=== PATIENT | male | born 1960 | race Caucasian/White ===

== ENCOUNTER 2016-12-02 18:57 | Emergency (ER) | payer OTHER ==
[2016-12-02] MEDS ORDERED: ONDANSETRON 4 MG TAB.RAPDIS PO ONE (19:58)
--- NOTE | 2016-12-02 19:58 | ER Document Report ---
ED General - General Chief Complaint: Psych Problem Stated Complaint: DEPRESSION SUICIDAL IDEATION Time Seen by Provider: 12/02/16 19:38 Mode of Arrival: Ambulatory Information source: Patient, Relative Notes: 56-year-old male history of depression presents with complaints of not being able to sleep feeling depressed being nauseous and vomiting. pt was on lexapro which was taken off in august. pt started on seroquel but did not take it today. TRAVEL OUTSIDE OF THE [place] IN LAST 30 DAYS: No - HPI Onset: Just prior to arrival Onset/Duration: Sudden Quality of pain: No pain Severity: Mild Pain Level: Denies Associated symptoms: Nausea, Vomiting Exacerbated by: Denies Relieved by: Denies Similar symptoms previously: Yes Recently seen / treated by doctor: Yes - Related Data Allergies/Adverse Reactions: No Known Drug Allergies Allergy (Verified 09/30/11 16:08) Past Medical History - Social History Smoking Status: Never Smoker Cigarette use (# per day): No Chew tobacco use (# tins/day): No Smoking Education Provided: No Family History: Reviewed & Not Pertinent Patient has suicidal ideation: Yes Patient has homicidal ideation: No - Past Medical History Cardiac Medical History: Denies: Hx Coronary Artery Disease, Hx Heart Attack, Hx Hypertension Pulmonary Medical History: Reports: Hx Pneumonia Denies: Hx Asthma, Hx Bronchitis, Hx COPD Neurological Medical History: Denies: Hx Cerebrovascular Accident, Hx Seizures Renal/ Medical History: Denies: Hx Peritoneal Dialysis Musculoskeltal Medical History: Reports Hx Arthritis Past Surgical History: Denies: Hx Pacemaker - Immunizations Hx Diphtheria, Pertussis, Tetanus Vaccination: Yes Review of Systems - Review of Systems Notes: REVIEW OF SYSTEMS: CONSTITUTIONAL : Denies fever, chills, or sweats. Denies recent illness. EENT: Denies eye, ear, throat, or mouth pain or symptoms. Denies nasal or sinus congestion or discharge. Denies throat, tongue, or mouth swelling or difficulty swallowing. CARDIOVASCULAR: Denies chest pain. Denies palpitations or racing or irregular heart beat. Denies ankle edema. RESPIRATORY: Denies cough, cold, or chest congestion. Denies shortness of breath, difficulty breathing, or wheezing. GASTROINTESTINAL: Admits to nausea vomiting GENITOURINARY: Denies difficulty urinating, painful urination, burning, frequency, blood in urine, or discharge. MUSCULOSKELETAL: Denies back or neck pain or stiffness. Denies joint pain or swelling. SKIN: Denies rash, lesions or sores. HEMATOLOGIC : Denies easy bruising or bleeding. LYMPHATIC: Denies swollen, enlarged glands. NEUROLOGICAL: Denies confusion or altered mental status. Denies passing out or loss of consciousness. Denies dizziness or lightheadedness. Denies headache. Denies weakness or paralysis or loss of use of either side. Denies problems with gait or speech. Denies sensory loss, numbness, or tingling. Denies seizures. PSYCHIATRIC: Admits to anxiety depression. ALL OTHER SYSTEMS REVIEWED AND NEGATIVE. Dictation was performed using [employer] voice recognition software PHYSICAL EXAMINATION: GENERAL: Well-appearing, well-nourished and in no acute distress. HEAD: Atraumatic, normocephalic. EYES: Pupils equal round and reactive to light, extraocular movements intact, sclera anicteric, conjunctiva are normal. ENT: Nares patent, oropharynx clear without exudates. Moist mucous membranes. NECK: Normal range of motion, supple without lymphadenopathy LUNGS: Breath sounds clear to auscultation bilaterally and equal. No wheezes rales or rhonchi. HEART: Regular rate and rhythm without murmurs ABDOMEN: Soft, nontender, nondistended abdomen. No guarding, no rebound. No masses appreciated. Musculoskeletal: Normal range of motion, no pitting or edema. No cyanosis. NEUROLOGICAL: Cranial nerves grossly intact. Normal speech, normal gait. Normal sensory, motor exams PSYCH: Flat affect SKIN: Warm, Dry, normal turgor, no rashes or lesions noted. Physical Exam - Vital signs Vitals: Temp Pulse Resp BP Pulse Ox 99.2 F 75 18 160/88 H 99 12/02/16 19:03 12/02/16 19:03 12/02/16 19:03 12/02/16 19:03 12/02/16 19:03 Course - Re-evaluation Re-evalutation: 12/02/16 21:19 Medically patient looks well however will require mental health evaluation. He will be given Haldol for his nausea vomiting and symptoms - Vital Signs Vital signs: Temp Pulse Resp BP Pulse Ox 99.2 F 75 18 160/88 H 99 12/02/16 19:03 12/02/16 19:03 12/02/16 19:03 12/02/16 19:03 12/02/16 19:03 - Laboratory Result Diagrams: 12/02/16 20:40 12/02/16 20:40 Discharge - Discharge Clinical Impression: Depression with anxiety Condition: Stable Disposition: PSYCH HOSP/UNIT
[2016-12-02] MEDS ORDERED: QUETIAPINE FUMARATE 100 MG TABLET PO ONE (20:24)
[2016-12-02] MEDS ORDERED: HALOPERIDOL LACTATE INJ 5 MG/1 ML VIAL IM ONE (20:55)
[2016-12-02 20:56] LABS: ABSOLUTE BASOPHILS # (AUTO) 0.1 10^3/uL (0.0-0.2); ABSOLUTE EOSINOPHILS # (AUTO) 0.1 10^3/uL (0.0-0.6); ABSOLUTE LYMPHOCYTES (AUTO) 2.6 10^3/uL (0.5-4.7); ABSOLUTE MONOCYTES (AUTO) 0.9 10^3/uL (0.1-1.4); ABSOLUTE NEUT (AUTO) 8.7 10^3/uL (1.7-8.2); BASOPHILS % (AUTO) 0.6 % (0-2); EOSINOPHILS % (AUTO) 0.8 % (0-6); HEMATOCRIT 44.3 % (37.9-51.0); HEMOGLOBIN 15.3 g/dL (13.5-17.0); HGB HCT DIFFERENCE 1.6; MEAN CORPUSCULAR HGB CONC 34.6 g/dL (32.0-36.0); MEAN CORPUSCULAR VOLUME 87 fl (80-97); MONOCYTES % (AUTO) 7.4 % (3-13); RED BLOOD COUNT 5.11 10^6/uL (4.35-5.55); RED CELL DISTRIBUTION WIDTH 13.3 % (11.5-14.0); SEGMENTED NEUTROPHILS % (AUTO) 70.2 % (42-78); WHITE BLOOD COUNT 12.4 10^3/uL (4.0-10.5)
[2016-12-02 21:06] LABS: ALANINE AMINOTRANSFERASE 32 U/L (21-72); ALBUMIN 4.8 g/dL (3.5-5.0); ALKALINE PHOSPHATASE 63 U/L (38-126); ANION GAP 14 (5-19); ASPARTATE AMINO TRANSFERASE 21 U/L (17-59); BILIRUBIN,DIRECT 0.4 mg/dL (0.0-0.4); BILIRUBIN,TOTAL 0.7 mg/dL (0.2-1.3); BLOOD UREA NITROGEN 10 mg/dL (7-20); CALCIUM 10.3 mg/dL (8.4-10.2); CARBON DIOXIDE 27 mmol/L (22-30); CHLORIDE 101 mmol/L (98-107); CREATININE RESULT 1.18 mg/dL (0.52-1.25); GLUCOSE 102 mg/dL (75-110); POTASSIUM 3.7 mmol/L (3.6-5.0); SODIUM 142.4 mmol/L (137-145); TOTAL PROTEIN 7.4 g/dL (6.3-8.2)
[2016-12-02 21:07] LABS: ALCOHOL < 10 mg/dL (NONE DETECTED)
[2016-12-02 21:59] LABS: APPEARANCE,URINE SLIGHTLY-CLOUDY; BILIRUBIN,URINE NEGATIVE (NEGATIVE); GLUCOSE, URINE NEGATIVE (NEGATIVE); KETONES,URINE NEGATIVE (NEGATIVE); LEUKOCYTE ESTERASE,URINE NEGATIVE (NEGATIVE); NITRITE,URINE NEGATIVE (NEGATIVE); PROTEIN,URINE NEGATIVE (NEGATIVE); URINE SPECIFIC GRAVITY 1.006; UROBILINOGEN,URINE NEGATIVE mg/dL (<2.0)
[2016-12-02 22:11] LABS: URINE BARBITURATES SCREEN NEGATIVE; URINE METHADONE SCREEN NEGATIVE; URINE OPIATES LOW NEGATIVE; URINE PHENCYCLIDINE SCREEN NEGATIVE
--- NOTE | 2016-12-03 08:04 | EKG REPORT ---
SEVERITY:- NORMAL ECG - SINUS RHYTHM : Confirmed by: Alvin Nicholson MD 03-Dec-2016 08:03:18
--- NOTE | 2016-12-03 09:16 | ER Document Report ---
Doctor's Note Notes: 12/03/16 09:15 This is a 56-year-old man with a history of depression who presented to the emergency room with worsening depression. Patient's labs and vital signs have been stable. He is currently awaiting psychiatric evaluation. 12/03/16 09:16 12/03/16 13:55 Patient has been evaluated by the psychiatry team and he will be discharged with follow-up immediately after discharge at the OR.
[2016-12-03] MEDS ORDERED: OXYCODONE HCL IR 5 MG TABLET PO ONE (10:56)
--- NOTE | 2016-12-03 13:34 | ER Document Report ---
ED Psych Disorder / Suicide - General Chief Complaint: Psych Problem Stated Complaint: DEPRESSION SUICIDAL IDEATION Time Seen by Provider: 12/02/16 19:38 Mode of Arrival: Ambulatory TRAVEL OUTSIDE OF THE [place] IN LAST 30 DAYS: No - HPI Notes: 56-year-old male history of depression presents with complaints of not being able to sleep feeling depressed being nauseous and vomiting. pt was on lexapro which was taken off in august. pt started on seroquel but did not take it yesterday or today. Patient disclosed that he has been suffering from anxiety which is caused him to be nauseous and vomit and difficulty in sleeping. Patient states is been going on for 3 weeks however is unsure of the what triggered it. Patient states he has no will to live however denies pain plan means or intent. Patient states the last time he felt this way was back in 2003. Patient's onset back in 2003 was stress. Patient's is bedside at patient's request. She disclosed the patient has been on Zoloft for about 3 weeks now and the patient did receive Seroquel last night. She confirms the patient has not been sleeping in both patient and his state that he still received little sleep after this Seroquel. Patient was previously on Lexapro and saw little improvement in which is why he was changed to Zoloft. She states the patient has been showing irritability along with anxiety. Patient is alert and orientated to person place time and circumstance. Mood is dysphoric with restricted affect. Patient endorses passive suicidal ideation denies homicidal ideation. Patient denies auditory visual hallucinations. Delusions are absent and behaviors congruent with intact reality based presentation i.e. organized, linear and rational thinking. Eye contact was well -maintained. Conversational speech was within normal rate tone and prosody. Intellectual abilities appear to be within average range. Attention and concentration are good. Insight, judgment, impulse control are good. [facility] the ; however, if patient would like to walk-in " no will ever be turned away for services." 300.00 (F41.9) unspecified anxiety Impression\\plan: Patient is considered psychiatrically clear. Patient does not meet IVC criteria per [place] GS 122C. Patient denies homicidal ideation. Patient endorses passive suicidal ideation no plans means or intent. Delusions are absent and behaviors congruent with intact reality based presentation i.e. organized, linear, rational thinking. Patient discloses high anxiety that was resulting in nausea. Patient did undergo medication adjustments approximately 3 weeks ago. Patient is [facility]. [facility] to [facility] can receive assistance with his medication management. Dr. Dorsey was consulted and the care management of this patient; attending physician is agreement with recommendations and disposition - Related Data Allergies/Adverse Reactions: No Known Drug Allergies Allergy (Verified 09/30/11 16:08) Home Medications: Current Home Medications Clonidine HCl [Clonidine HCl] 0.2 mg PO HSP PRN 12/02/16 [History] Diltiazem HCl [Diltiazem 24Hr Cd] 120 mg PO DAILY 12/02/16 [History] Lactobacillus Acidophilus [Acidophilus Lactobacilli] 1 tab PO DAILY 12/02/16 [ History] Magnesium Oxide [Mag-Ox 400 mg Tablet] 400 mg PO HSP PRN 12/02/16 [History] Pantoprazole Sodium [Protonix] 40 mg PO DAILY 12/02/16 [History] Pyridoxine HCl (Vitamin B6) [Pyridoxine HCl] 50 mg PO DAILY 12/02/16 [History] Quetiapine Fumarate [Seroquel 100 mg Tablet] 100 mg PO HSP PRN 12/02/16 [History ] Sertraline HCl [Sertraline HCl] 50 mg PO DAILY 12/02/16 [History] Terbinafine HCl [Terbinafine HCl] 100 mg PO DAILY 12/02/16 [History] Past Medical History - General Information source: Patient, Relative - Social History Smoking Status: Never Smoker Cigarette use (# per day): No Chew tobacco use (# tins/day): No Family History: Reviewed & Not Pertinent Patient has suicidal ideation: Yes Patient has homicidal ideation: No - Past Medical History Cardiac Medical History: Denies: Hx Coronary Artery Disease, Hx Heart Attack, Hx Hypertension Pulmonary Medical History: Reports: Hx Pneumonia Denies: Hx Asthma, Hx Bronchitis, Hx COPD Neurological Medical History: Denies: Hx Cerebrovascular Accident, Hx Seizures Renal/ Medical History: Denies: Hx Peritoneal Dialysis Musculoskeltal Medical History: Reports Hx Arthritis Past Surgical History: Denies: Hx Pacemaker - Immunizations Hx Diphtheria, Pertussis, Tetanus Vaccination: Yes Physical Exam - Vital signs Vitals: Temp Pulse Resp BP Pulse Ox 99.2 F 75 18 160/88 H 99 12/02/16 19:03 12/02/16 19:03 12/02/16 19:03 12/02/16 19:03 12/02/16 19:03 Course - Vital Signs Vital signs: Temp Pulse Resp BP Pulse Ox 98.4 F 71 19 136/61 H 98 12/03/16 05:00 12/03/16 09:19 12/03/16 09:19 12/03/16 09:19 12/03/16 09:19 - Laboratory Result Diagrams: 12/02/16 20:40 12/02/16 20:40 Laboratory results interpreted by me: 12/02/16 12/02/16 12/02/16 20:40 20:40 21:40 WBC 12.4 H Absolute Neutrophils 8.7 H Calcium 10.3 H Urine Blood SMALL H Salicylates < 1.0 L Acetaminophen < 10 L Discharge - Discharge Clinical Impression: Depression with anxiety, Pre-hypertension Condition: Stable Disposition: HOME, SELF-CARE Additional Instructions: DEPRESSION: Your evaluation reveals that you have mental depression. While symptoms may be vague, they often include disturbance of sleep, fatigue, loss of appetite , and general loss of interest in life. While depression may be a side effect of drugs, or a reaction to a major change in your life, many cases have no known cause. If depression is acute, and related to a major loss in your life, you can expect it to clear completely with time. If you have been depressed a long time , are prone to repeated bouts of depression or low mood, or have been thinking of suicide, get help. Depression can be treated with anti-depressant medication and counselling. Long-term depression will often take a few weeks to clear, even with appropriate medication. Follow-up care is important. SUICIDAL IDEATION: Suicidal ideation is a common medical term for thoughts about suicide, which may be as detailed as a formulated plan, without the suicidal act itself. Although most people who undergo suicidal ideation do not commit suicide, some go on to make suicide attempts. The range of suicidal ideation varies greatly from fleeting to detailed planning, role playing, and unsuccessful attempts. While thoughts about suicide are common, most people do not carry out serious actions to commit suicide. Based upon your evaluation and discussion with you, we do not believe you are currently at risk to act upon your thoughts of suicide. You have agreed to return to the Emergency Department, at any time , if you feel inclined to act upon your suicidal thoughts. FOLLOW-UP CARE: Please follow-up with your outpatient mental health provider, [facility], upon discharge. [facility] are aware [facility] will be arriving to their facility. If you experience worsening or a significant change in your symptoms, notify the physician immediately or return to the Emergency Department at any time for re-evaluation. Forms: Elevated Blood Pressure Referrals: [facility] [Provider Group] - 12/03/16
[2016-12-03 14:03] VITALS: BP 156/95
== END 2016-12-03 14:03 | disposition home or self-care (01) ==
LOC: ER 18:57
DX: F32.9 Major depressive disorder, single episode, unspecified (principal); F41.9 Anxiety disorder, unspecified; R03.0 Elevated blood-pressure reading, without diagnosis of hypertension; R11.2 Nausea with vomiting, unspecified; Z79.899 Other long term (current) drug therapy
CPT/HCPCS: 93005; 99285; 96372; 36415; 80307 ×4; 85025; 80053; 81001; 93010; S0119; J1630